=== PATIENT | female | born 1980 | race Caucasian/White ===

== ENCOUNTER 2021-03-22 04:33 | Emergency (ER) | payer MEDICAID ==
[~2021-03-22] VITALS: Ht 167.6 cm; Wt 74.8 kg
[2021-03-22 05:04] LABS: HEMATOCRIT 38.4 % (37.0-47.0); HEMOGLOBIN 13.3 gm/dL (12.0-15.0); MCH 31.8 pg (26.0-34.0); MCHC 34.5 g/dL (28.0-37.0); MCV 92.3 fL (80.0-100.0); MPV 7.8 fl. (7.2-11.1); NUCLEATED RBCS 0 /100WBC; PLATELET COUNT* 252 thou/uL (150-400); RBC 4.16 mil/uL (4.20-5.00); RDW-CV 13.2 % (10.5-14.5); WBC 18.8 thou/uL (4.0-11.0)
[2021-03-22 05:18] LABS: CALCIUM 8.4 mg/dL (8.5-10.1); CREATININE 0.9 mg/dL (0.6-1.3)
[2021-03-22 05:23] LABS: ALBUMIN 2.7 g/dL (3.4-5.0); POTASSIUM 2.8 mmol/L (3.5-5.1); TOTAL BILIRUBIN 0.2 mg/dL (<0.1-1.0); TOTAL PROTEIN 6.9 g/dL (6.4-8.2)
[2021-03-22 05:34] LABS: URINE BILIRUBIN NEGATIVE (Negative); URINE BLOOD 2+ (Negative); URINE CLARITY CLEAR; URINE COLOR YELLOW; URINE GLUCOSE-RANDOM NEGATIVE (Negative); URINE KETONES NEGATIVE (Negative); URINE LEUKOCYTES-REFLEX 1+ (Negative); URINE NITRITE-REFLEX POSITIVE (Negative); URINE PROTEIN NEGATIVE (Negative); URINE SPECIFIC GRAVITY 1.015 (1.005-1.030); URINE UROBILINOGEN 0.2 E.U./dl (0.2-1.0)
[2021-03-22 05:42] LABS: AMP/METHAMP POSITIVE (Negative); BARBITURATES Negative (Negative); BENZODIAZEPINES Negative (Negative); COCAINE Negative (Negative); METHADONE Negative (Negative); OPIATES POSITIVE (Negative); PCP Negative (Negative); THC Negative (Negative)
[2021-03-22 06:15] LABS: SQUAMOUS 0-3 Few /LPF (0-3)
[2021-03-22 06:16] LABS: CASTS None Seen /LPF (None Seen); CRYSTALS None Seen /LPF (None Seen); MUCUS 0-3 Light strn/LPF (None Seen); URINE RBC 3-10 Few /HPF (0-2)
[2021-03-22 06:19] LABS: ABSOLUTE LYMPHOCYTES 1.5 thou/uL (0.8-5.3); ABSOLUTE MONOCYTES 0.8 thou/uL (0.0-1.2); ABSOLUTE NEUTROPHILS 16.5 thou/uL (1.6-8.1); ANISOCYTOSIS 1+; PLATELET ESTIMATE ADEQUATE; POIKILOCYTOSIS 1+
[2021-03-22 07:00] VITALS: BP 105/64
--- NOTE | 2021-03-22 13:58 | EKG ---
[place] [address] ELECTROCARDIOGRAM REPORT Name: MEKASONYA Room: [facility]#: [id number] Admission: 03/22/21 Attend Phys: Discharge: 03/22/21 Date of : 84 Date of Service: 03/22/2111 Report #: [id number] THIS REPORT FOR: //name// [facility] ED Test Date: 2021-03-22 Test Time: 05:11:41 Pat Name: SONYA ACKERMAN Department: Room: Gender: F Pharmacy Billing Adjudicator: HERIBERTO : 1980 Requested By: Rhonda Lynn Order Number: [id number] MD: Shabbir Duke Measurements Intervals [place] Rate: 132 P: 82 WA: 134 QRS: 69 QRSD: 82 T: -15 QT: 298 QTc: 442 Interpretive Statements Sinus tachycardia Consider right atrial enlargement Nonspecific repol abnormality, diffuse leads Baseline wander in lead(s) V1,V2,V3,V5,V6 No previous ECG available for comparison Electronically Signed On 03-22-2021 13:58:06 CDT by Shabbir Duke [email or web address] <ELECTRONICALLY SIGNED> By: Shabbir Duke MD, [facility] 03/22/21 1358 0511 0511 Shabbir Duke MD, [facility] /EPI
== END 2021-03-22 07:00 | disposition home or self-care (01) ==
LOC: M.ERS 04:33
PROVIDERS: Personal Emergency Response Attendant
DX: M48.07 Spinal stenosis, lumbosacral region (principal); M54.42 Lumbago with sciatica, left side; F15.90 Other stimulant use, unspecified, uncomplicated